=== PATIENT | female | born 2005 | race Caucasian/White ===

== ENCOUNTER 2023-12-09 18:17 | Emergency (ER) | payer BC ==
[~2023-12-09] VITALS: Ht 165.1 cm; Wt 57.6 kg
[2023-12-09] MEDS ORDERED: LIDOCAINE 1% INJ 50 ML MDV IJ ONE (19:18)
[2023-12-09] MEDS: LIDOCAINE 2% 20 ML MDV TP ONE (19:37)
[2023-12-09] MEDS ORDERED: HYDROCODONE/APAP 5/325MG TABLET ONE (19:38)
[2023-12-09] MEDS: HYDROCODONE/APAP 5/325MG TABLET PO ONE (19:42)
[2023-12-09 20:00] VITALS: BP 134/87; TEMP 98.1; O2SAT 99
== END 2023-12-09 20:01 | disposition home or self-care (01) ==
LOC: ER 18:17
DX: S61.412A Laceration without foreign body of left hand, initial encounter (principal); W26.0XXA Contact with knife, initial encounter; Y93.89 Activity, other specified; Y92.090 Kitchen in other non-institutional residence as the place of occurrence of the external cause; Y99.8 Other external cause status
CPT/HCPCS: 99282; 12001; J3490